=== PATIENT | male | born 1990 | race Hispanic/Latino ===

== ENCOUNTER 2022-07-25 16:21 | Emergency (ER) | payer OTHER ==
[~2022-07-25] VITALS: Ht 182.9 cm; Wt 167.8 kg
[2022-07-25] MEDS ORDERED: KETOROLAC 15MG/ML VIAL (15MG/ML) IM ONE (18:30)
[2022-07-25] MEDS ORDERED: CYCLOBENZAPRINE HCL 10 MG TABLET PO ONE (18:30)
[2022-07-25] MEDS ORDERED: LIDOCAINE 5% TOPICAL PATCH TP ONE (18:30)
[2022-07-25] MEDS ORDERED: CYCL-309 PO (18:44)
[2022-07-25] MEDS ORDERED: KETO10TA2 PO (18:44)
[2022-07-25] MEDS ORDERED: LIDO1ADH82 TP (18:44)
[2022-07-25 20:35] VITALS: BP 132/74
== END 2022-07-25 20:42 | disposition home or self-care (01) ==
LOC: EDH 16:21
DX: M62.830 Muscle spasm of back (principal); J45.909 Unspecified asthma, uncomplicated
CPT/HCPCS: 99283; 96372; J1885